=== PATIENT | male | born 1975 | race Caucasian/White ===

== ENCOUNTER 2017-10-20 11:12 | Outpatient (CLI) | payer MEDICAID ==
[2017-10-20 11:38] LABS: BASOPHILS # (AUTO) 0.1 10^3/uL (0.0-0.1); BASOPHILS % (AUTO) 1.4 %; EOSINOPHILS # (AUTO) 0.2 10^3/uL (0.0-0.7); EOSINOPHILS % (AUTO) 2.4 %; HGB - HEMOGLOBIN 15.3 g/dL (14.0-18.0); LYMPHOCYTES # (AUTO) 3.5 10^3/uL (1.5-3.5); MEAN CORPUSCULAR HEMOGLOBIN 30.8 pg (27.0-31.0); MEAN CORPUSCULAR HGB CONC 34.2 g/dL (32.0-36.0); MEAN CORPUSCULAR VOLUME 90.1 fL (80.0-94.0); MEAN PLATELET VOLUME 10.1 fL (7.4-11.4); MONOCYTES # (AUTO) 0.7 10^3/uL (0.0-1.0); MONOCYTES % (AUTO) 8.8 %; NEUTROPHILS # (AUTO) 3.9 10^3/uL (1.5-6.6); NEUTROPHILS % (AUTO) 46.4 %; PLT - PLATELET COUNT 151 10^3/uL (130-450); RED BLOOD COUNT 4.96 10^6/uL (4.70-6.10); RED CELL DISTRIBUTION WIDTH 12.5 % (12.0-15.0); WHITE BLOOD COUNT 8.5 x10^3/uL (4.8-10.8)
[2017-10-20 12:01] LABS: ALBUMIN 4.2 g/dL (3.2-5.5); ALBUMIN/GLOBULIN RATIO 1.1 (1.0-2.2); CALCIUM 9.3 mg/dL (8.5-10.3); CREATININE 1.1 mg/dL (0.6-1.2); TOTAL PROTEIN 7.9 g/dL (6.7-8.2)
[2017-10-23 10:12] LABS: HCV RNA QNT <1.18 NOT DETECTED Log IU/mL (NOT DETECTED); HCV RNA QUANT RT PCR <15 NOT DETECTED IU/mL (NOT DETECTED)
== END 2017-10-20 11:13 | disposition home or self-care (01) ==
LOC: LAB 11:12
PROVIDERS: ATTEND Internal Medicine
DX: B18.2 Chronic viral hepatitis C (principal)
CPT/HCPCS: 36415; 80053; 85025; 87522